=== PATIENT | male | born 1950 | race Two or more races ===

== ENCOUNTER 2016-12-17 09:16 | Inpatient (IN) | payer BC ==
[2016-12-17] VITALS (13 sets, daily range): BP systolic 100–143; BP diastolic 49–59
[~2016-12-17] VITALS: Ht 172.7 cm; Wt 70.3 kg
[2016-12-17] MEDS ORDERED: ASPIRIN 325 MG TABLET PO ONE (09:30)
[2016-12-17 09:32] LABS: BASOPHILS % (AUTO) 0.8 % (0.0-2.0); EOSINOPHILS # (AUTO) 0.2 /CMM (0.0-0.7); HEMATOCRIT 23 % (39-51); LYMPHOCYTES # (AUTO) 0.7 /CMM (0.8-4.8); LYMPHOCYTES % (AUTO) 20.8 % (20.0-44.0); MEAN CORPUSCULAR HEMOGLOBIN 20 PG (26.0-33.0); MEAN CORPUSCULAR HGB CONC 31 g/dl (31.0-36.0); MEAN CORPUSCULAR VOLUME 66 fL (80-96); MONOCYTES # (AUTO) 0.5 /CMM (0.1-1.30); MONOCYTES % (AUTO) 16.1 % (2.0-12.0); NEUTROPHILS # (AUTO) 1.8 /CMM (1.8-8.9); NEUTROPHILS % (AUTO) 57.3 % (43.0-81.0); PLATELET COUNT (AUTO) 104 /CMM (150-450); RDW COEFFICIENT OF VARIATION 21.2 (11.5-15.0); RED BLOOD CELL COUNT(AUTO) 3.45 MIL/uL (4.5-6.0); WHITE BLOOD COUNT (AUTO) 3.2 K/uL (4.3-11.0)
[2016-12-17 09:47] LABS: TROPONIN I < 0.017 ng/mL (0.00-0.056)
[2016-12-17 09:48] LABS: CALCIUM, SERUM 7.3 mg/dL (8.5-10.1); CARBON DIOXIDE 21 mmol/L (21-32); CHLORIDE 112 mmol/L (98-107); CREATININE 0.8 mg/dL (0.6-1.3); GLUCOSE 206 mg/dL (74-106); INR 1.35 (0.87-1.13); POTASSIUM 3.5 mmol/L (3.5-5.1); PROTHROMBIN TIME 14.7 SECS (9.5-12.7); SODIUM SERUM 142 mmol/L (136-145); UREA NITROGEN, BLOOD 22 mg/dL (7-18)
[2016-12-17] MEDS ORDERED: ASPIRIN EC 81 MG TABLET.DR PO ONE (09:52)
[2016-12-17 09:53] LABS: ALANINE AMINOTRANSFERASE 39 U/L (12-78); ALBUMIN 2.3 g/dL (3.4-5.0); ALKALINE PHOSPHATASE 192 U/L (46-116); ASPARTATE AMINOTRANSFERASE 40 U/L (15-37); BILIRUBIN,DIRECT 0.4 mg/dL (0.0-0.2); BILIRUBIN,TOTAL 0.9 mg/dL (0.2-1.0); TOTAL PROTEIN, SERUM 4.9 g/dL (6.4-8.2)
[2016-12-17 09:56] LABS: HEMOGLOBIN 6.9 g/dL (13.5-17.5)
[2016-12-17 10:11] LABS: BAND % (MANUAL) 3 % (0.0-5.0); EOSINOPHILS % (MANUAL) 9 % (0-4); LYMPHOCYTES % (MANUAL) 21 % (16-48); MONOCYTES % (MANUAL) 11 % (0-11.0); NEUTROPHILS % (MANUAL) 56 (42-76)
[2016-12-17] MEDS ORDERED: HYDR25TA4 PO (10:21)
[2016-12-17] MEDS ORDERED: LACT10SO PO (10:21)
[2016-12-17] MEDS ORDERED: GABA-534 PO (10:21)
[2016-12-17] MEDS ORDERED: NADO40TA6 PO (10:21)
[2016-12-17] MEDS ORDERED: GLIP5TAB13 PO (10:21)
[2016-12-17] MEDS ORDERED: ATOR10TA PO (10:21)
[2016-12-17] MEDS ORDERED: LISI-603 PO (10:21)
[2016-12-17] MEDS ORDERED: METF10002 PO (10:21)
[2016-12-17] MEDS ORDERED: DEXTROSE 50%-WATER 50 ML DISP.SYRIN IV PRN (11:00)
[2016-12-17] MEDS: PANTOPRAZOLE 40 MG TABLET.DR PO SCH ×2 (12:00→18:21)
[2016-12-17] MEDS ORDERED: BLOOD SUGAR DIAGNOSTIC 1 EACH STRIP IN SCH (12:00)
[2016-12-17] MEDS: BLOOD SUGAR DIAGNOSTIC 1 EACH STRIP IN SCH ×5 (12:52→21:34)
[2016-12-17] MEDS ORDERED: IV NS 0.9% 250 ML IV ONE (13:50)
[2016-12-17] MEDS ORDERED: BLOOD IV SET 1 EA INFUS.SET MC ONE (13:50)
[2016-12-17 16:40] LABS: APPEARANCE,URINE CLEAR (CLEAR); BILIRUBIN,URINE NEGATIVE (NEGATIVE); BLOOD, URINE NEGATIVE Ery/uL (NEGATIVE); COLOR,URINE YELLOW (YELLOW); KETONES,URINE NEGATIVE (NEGATIVE); LEUKOCYTE ESTERASE ,URINE 1+ (NEGATIVE); NITRITE, URINE NEGATIVE (NEGATIVE); PH,URINE 6.5 (5.0-8.0); PROTEIN,URINE NEGATIVE (NEGATIVE); UGLUCOSE 1+ mg/dL (NEGATIVE); UROBILINOGEN,URINE 0.2 EU/dL (0.2)
[2016-12-17 16:54] LABS: RBC,URINE NONE SEEN /HPF (0-2)
[2016-12-17 16:55] LABS: BACTERIA,URINE Many /HPF (None Seen); SQUAMOUS EPITHELIAL CELL,UR Few /HPF (None Seen)
[2016-12-17 19:08] LABS: THYROID STIMULATING HORMONE 1.788 uIU/mL (0.358-3.74)
[2016-12-18] VITALS (7 sets, daily range): BP systolic 112–132; BP diastolic 50–65
[2016-12-18] MEDS: BLOOD SUGAR DIAGNOSTIC 1 EACH STRIP IN SCH ×4 (06:23→21:18)
[2016-12-18 07:03] LABS: BASOPHILS % (AUTO) 0.3 % (0.0-2.0); EOSINOPHILS # (AUTO) 0.2 /CMM (0.0-0.7); EOSINOPHILS % (AUTO) 4.1 % (0.0-6.0); HEMATOCRIT 29 % (39-51); LYMPHOCYTES # (AUTO) 0.7 /CMM (0.8-4.8); LYMPHOCYTES % (AUTO) 19.1 % (20.0-44.0); MEAN CORPUSCULAR HEMOGLOBIN 22 PG (26.0-33.0); MEAN CORPUSCULAR HGB CONC 31 g/dl (31.0-36.0); MEAN CORPUSCULAR VOLUME 69 fL (80-96); MONOCYTES # (AUTO) 0.7 /CMM (0.1-1.30); MONOCYTES % (AUTO) 16.7 % (2.0-12.0); NEUTROPHILS # (AUTO) 2.3 /CMM (1.8-8.9); NEUTROPHILS % (AUTO) 59.8 % (43.0-81.0); PLATELET COUNT (AUTO) 106 /CMM (150-450); RDW COEFFICIENT OF VARIATION 24.6 (11.5-15.0); RED BLOOD CELL COUNT(AUTO) 4.19 MIL/uL (4.5-6.0); WHITE BLOOD COUNT (AUTO) 3.9 K/uL (4.3-11.0)
[2016-12-18 07:19] LABS: ALBUMIN 2.7 g/dL (3.4-5.0); BILIRUBIN,TOTAL 1.5 mg/dL (0.2-1.0); CALCIUM, SERUM 9.1 mg/dL (8.5-10.1); CREATININE 0.9 mg/dL (0.6-1.3); MAGNESIUM 1.4 mg/dL (1.8-2.4); PHOSPHORUS 3.3 mg/dL (2.5-4.9); POTASSIUM 3.5 mmol/L (3.5-5.1)
[2016-12-18 08:22] LABS: EOSINOPHILS % (MANUAL) 3 % (0-4); LYMPHOCYTES % (MANUAL) 16 % (16-48); MONOCYTES % (MANUAL) 14 % (0-11.0); NEUTROPHILS % (MANUAL) 67 (42-76)
[2016-12-18] MEDS ORDERED: ASPIRIN 81 MG TAB.CHEW PO SCH (09:00)
[2016-12-18] MEDS ORDERED: ENOXAPARIN SODIUM 40 MG/0.4 ML DISP.SYRIN SQ SCH (09:00)
[2016-12-18] MEDS ORDERED: IV SET PRIMARY PUMP SET 1 EA INFUS.SET MC ONE ×2 (10:34→23:20)
[2016-12-18] MEDS: Magnesium 1GM/D5W 100ML PREMIX 100 ML IV SCH ×2 (10:39→11:42)
[2016-12-18] MEDS ORDERED: ANESTHESIA TRAY IN PYXIS 1 EA TRAY MC ONE (13:51)
[2016-12-18 14:33] LABS: ALBUMIN 2.8 g/dL (3.4-5.0); BILIRUBIN,TOTAL 1.6 mg/dL (0.2-1.0); CALCIUM, SERUM 8.9 mg/dL (8.5-10.1); CREATININE 0.9 mg/dL (0.6-1.3); POTASSIUM 3.4 mmol/L (3.5-5.1); TOTAL PROTEIN, SERUM 6.1 g/dL (6.4-8.2)
[2016-12-18] MEDS: INSULIN REGULAR, HUMAN 100 UNIT/ML 3 ML VIAL SQ PRN (17:20)
[2016-12-18] MEDS ORDERED: SOD FERRIC GLUC 125 MG in IV NS 0.9% 100 ML IV SCH (22:30)
[2016-12-18] MEDS ORDERED: SOD FERRIC GLUC 62.5 MG/5 ML AMPUL IV ONE (22:46)
[2016-12-18] MEDS ORDERED: IV NS 0.9% 100 ML IV ONE (22:51)
[2016-12-18] MEDS ORDERED: SECONDARY IV SET 1 EA INFUS.SET MC ONE (22:55)
[2016-12-18] MEDS: LACTULOSE 10 G/15 ML UDC (PYXIS) PO PRN (23:17)
[2016-12-18] MEDS ORDERED: IV NS 0.9% 250 ML IV ONE (23:20)
[2016-12-19] VITALS: BP 128/51
[2016-12-19 04:00] VITALS: BP_SYST 123; BP_SYST 140; BP_DIAS 52; BP_DIAS 75
[2016-12-19] MEDS: PANTOPRAZOLE 40 MG TABLET.DR PO SCH (06:33)
[2016-12-19] MEDS: BLOOD SUGAR DIAGNOSTIC 1 EACH STRIP IN SCH ×4 (06:33→21:52)
[2016-12-19 06:40] LABS: BASOPHILS % (AUTO) 0.7 % (0.0-2.0); EOSINOPHILS # (AUTO) 0.2 /CMM (0.0-0.7); EOSINOPHILS % (AUTO) 3.9 % (0.0-6.0); HEMATOCRIT 28 % (39-51); LYMPHOCYTES # (AUTO) 0.7 /CMM (0.8-4.8); LYMPHOCYTES % (AUTO) 16.3 % (20.0-44.0); MEAN CORPUSCULAR HEMOGLOBIN 22 PG (26.0-33.0); MEAN CORPUSCULAR HGB CONC 32 g/dl (31.0-36.0); MEAN CORPUSCULAR VOLUME 69 fL (80-96); MONOCYTES # (AUTO) 0.5 /CMM (0.1-1.30); MONOCYTES % (AUTO) 11.7 % (2.0-12.0); NEUTROPHILS # (AUTO) 3.1 /CMM (1.8-8.9); NEUTROPHILS % (AUTO) 67.4 % (43.0-81.0); PLATELET COUNT (AUTO) 105 /CMM (150-450); RDW COEFFICIENT OF VARIATION 24.3 (11.5-15.0); RED BLOOD CELL COUNT(AUTO) 4.09 MIL/uL (4.5-6.0); WHITE BLOOD COUNT (AUTO) 4.6 K/uL (4.3-11.0)
[2016-12-19 06:58] LABS: ALBUMIN 2.7 g/dL (3.4-5.0); BILIRUBIN,TOTAL 1.5 mg/dL (0.2-1.0); CALCIUM, SERUM 8.4 mg/dL (8.5-10.1); CREATININE 0.8 mg/dL (0.6-1.3); MAGNESIUM 1.4 mg/dL (1.8-2.4); PHOSPHORUS 3.3 mg/dL (2.5-4.9); POTASSIUM 3.4 mmol/L (3.5-5.1); TOTAL PROTEIN, SERUM 5.9 g/dL (6.4-8.2)
[2016-12-19 07:57] LABS: EOSINOPHILS % (MANUAL) 4 % (0-4); LYMPHOCYTES % (MANUAL) 18 % (16-48); MONOCYTES % (MANUAL) 9 % (0-11.0); NEUTROPHILS % (MANUAL) 69 (42-76)
[2016-12-19 08:00] VITALS: BP 118/54
[2016-12-19] MEDS: LACTULOSE 10 G/15 ML UDC (PYXIS) PO PRN ×2 (08:56→17:22)
[2016-12-19] MEDS ORDERED: ENOXAPARIN SODIUM 40 MG/0.4 ML DISP.SYRIN SQ SCH (10:00)
[2016-12-19] MEDS ORDERED: POTASSIUM CHLORIDE 20 MEQ TAB.PRT.SR PO SCH (10:30)
[2016-12-19] MEDS: PROPRANOLOL HCL 10 MG TABLET PO SCH (11:00)
[2016-12-19] MEDS ORDERED: SECONDARY IV SET 1 EA INFUS.SET MC ONE ×2 (11:11→22:03)
[2016-12-19] MEDS: Magnesium 1GM/D5W 100ML PREMIX 100 ML IV SCH ×4 (11:23→15:33)
[2016-12-19] MEDS: INSULIN REGULAR, HUMAN 100 UNIT/ML 3 ML VIAL SQ PRN ×2 (12:33→17:14)
[2016-12-19] MEDS ORDERED: SOD FERRIC GLUC 125 MG in IV NS 0.9% 100 ML IV SCH (14:00)
[2016-12-19 16:00] VITALS: BP 124/56
[2016-12-19 20:00] VITALS: BP 112/53
[2016-12-19] MEDS: ENOXAPARIN SODIUM 40 MG/0.4 ML DISP.SYRIN SQ SCH (21:54)
[2016-12-19] MEDS ORDERED: PIPERACILLIN /TAZOBACTAM 3.375 G VIAL IV ONE (21:55)
[2016-12-19] MEDS ORDERED: IV D5W 50 ML IV ONE (21:59)
[2016-12-19] MEDS ORDERED: VANCOMYCIN 1 GM in IV D5W 250 ML IV ONE (22:00)
[2016-12-19] MEDS ORDERED: Potassium Chloride 20 MEQ in IV NS 0.9% 1,000 ML IV PRN (22:00)
[2016-12-19] MEDS ORDERED: VANCOMYCIN 1 GM VIAL ONE (22:08)
[2016-12-19] MEDS ORDERED: IV D5W 250 ML IV ONE ×2 (22:08→22:09)
[2016-12-19] MEDS: PIPERACILLIN /TAZOBACTAM 3.375 G in IV D5W 50 ML IV SCH (22:14)
[2016-12-20 04:00] VITALS: BP 112/53
[2016-12-20] MEDS ORDERED: IV D5W 50 ML IV ONE (05:23)
[2016-12-20] MEDS ORDERED: PIPERACILLIN /TAZOBACTAM 3.375 G VIAL IV ONE (05:23)
[2016-12-20] MEDS: PIPERACILLIN /TAZOBACTAM 3.375 G in IV D5W 50 ML IV SCH ×3 (05:38→18:24)
[2016-12-20 06:40] LABS: BASOPHILS % (AUTO) 0.5 % (0.0-2.0); EOSINOPHILS # (AUTO) 0.1 /CMM (0.0-0.7); EOSINOPHILS % (AUTO) 1.2 % (0.0-6.0); HEMATOCRIT 30 % (39-51); HEMOGLOBIN 9.5 g/dL (13.5-17.5); LYMPHOCYTES # (AUTO) 0.9 /CMM (0.8-4.8); LYMPHOCYTES % (AUTO) 11.7 % (20.0-44.0); MEAN CORPUSCULAR HEMOGLOBIN 22 PG (26.0-33.0); MEAN CORPUSCULAR HGB CONC 32 g/dl (31.0-36.0); MEAN CORPUSCULAR VOLUME 70 fL (80-96); MONOCYTES # (AUTO) 0.8 /CMM (0.1-1.30); MONOCYTES % (AUTO) 9.9 % (2.0-12.0); NEUTROPHILS % (AUTO) 76.7 % (43.0-81.0); PLATELET COUNT (AUTO) 98 /CMM (150-450); RDW COEFFICIENT OF VARIATION 24.7 (11.5-15.0); RED BLOOD CELL COUNT(AUTO) 4.29 MIL/uL (4.5-6.0); WHITE BLOOD COUNT (AUTO) 7.9 K/uL (4.3-11.0)
[2016-12-20] MEDS: BLOOD SUGAR DIAGNOSTIC 1 EACH STRIP IN SCH ×4 (06:46→22:09)
[2016-12-20] MEDS: PANTOPRAZOLE 40 MG TABLET.DR PO SCH (06:49)
[2016-12-20 06:56] LABS: ALANINE AMINOTRANSFERASE 46 U/L (12-78); ALBUMIN 2.6 g/dL (3.4-5.0); ALKALINE PHOSPHATASE 183 U/L (46-116); ASPARTATE AMINOTRANSFERASE 46 U/L (15-37); BILIRUBIN,TOTAL 1.8 mg/dL (0.2-1.0); CALCIUM, SERUM 8.2 mg/dL (8.5-10.1); CARBON DIOXIDE 22 mmol/L (21-32); CHLORIDE 109 mmol/L (98-107); CREATININE 0.8 mg/dL (0.6-1.3); GLUCOSE 128 mg/dL (74-106); MAGNESIUM 1.6 mg/dL (1.8-2.4); PHOSPHORUS 2.5 mg/dL (2.5-4.9); POTASSIUM 3.7 mmol/L (3.5-5.1); SODIUM SERUM 141 mmol/L (136-145); TOTAL PROTEIN, SERUM 5.9 g/dL (6.4-8.2); UREA NITROGEN, BLOOD 10 mg/dL (7-18)
[2016-12-20 07:20] LABS: EOSINOPHILS % (MANUAL) 1 % (0-4); LYMPHOCYTES % (MANUAL) 16 % (16-48); MONOCYTES % (MANUAL) 7 % (0-11.0); NEUTROPHILS % (MANUAL) 76 (42-76)
[2016-12-20] MEDS: INSULIN REGULAR, HUMAN 100 UNIT/ML 3 ML VIAL SQ PRN ×3 (07:46→22:11)
[2016-12-20 08:00] VITALS: BP 108/48
[2016-12-20] MEDS ORDERED: FEE PK DOSING 1 MIN EA MC ONE ×2 (08:15→08:57)
[2016-12-20 08:23] LABS: BILIRUBIN,DIRECT 0.7 mg/dL (0.0-0.2)
[2016-12-20] MEDS ORDERED: ENOXAPARIN SODIUM 40 MG/0.4 ML DISP.SYRIN SQ SCH (09:00)
[2016-12-20] MEDS: PROPRANOLOL HCL 10 MG TABLET PO SCH (09:00)
[2016-12-20] MEDS: ENOXAPARIN SODIUM 40 MG/0.4 ML DISP.SYRIN SQ SCH ×2 (09:20→22:28)
[2016-12-20] MEDS ORDERED: IV SET PRIMARY PUMP SET 1 EA INFUS.SET MC ONE (09:39)
[2016-12-20] MEDS: Magnesium 1GM/D5W 100ML PREMIX 100 ML IV SCH ×2 (09:45→11:08)
[2016-12-20] MEDS ORDERED: SECONDARY IV SET 1 EA INFUS.SET MC ONE ×2 (13:09→14:09)
[2016-12-20] MEDS: VANCOMYCIN 1 GM in IV D5W 250 ML IV SCH ×2 (14:15→22:06)
[2016-12-20 16:00] VITALS: BP 123/57
[2016-12-20] MEDS: LACTULOSE 10 G/15 ML UDC (PYXIS) PO SCH (18:23)
[2016-12-20 20:00] VITALS: BP 104/51
[2016-12-21] MEDS: PIPERACILLIN /TAZOBACTAM 3.375 G in IV D5W 50 ML IV SCH ×4 (00:12→18:01)
[2016-12-21 04:00] VITALS: BP 105/46
[2016-12-21] MEDS ORDERED: IV NS 0.9% 250 ML IV ONE (05:26)
[2016-12-21 07:22] LABS: CALCIUM, SERUM 8.5 mg/dL (8.5-10.1); CREATININE 0.9 mg/dL (0.6-1.3); POTASSIUM 3.7 mmol/L (3.5-5.1)
[2016-12-21] MEDS: PANTOPRAZOLE 40 MG TABLET.DR PO SCH (07:30)
[2016-12-21] MEDS: BLOOD SUGAR DIAGNOSTIC 1 EACH STRIP IN SCH ×4 (07:30→22:00)
[2016-12-21 08:00] VITALS: BP 115/60
[2016-12-21] MEDS: PROPRANOLOL HCL 10 MG TABLET PO SCH (09:00)
[2016-12-21] MEDS: LACTULOSE 10 G/15 ML UDC (PYXIS) PO SCH ×2 (09:00→18:01)
[2016-12-21] MEDS ORDERED: LACTULOSE 10 G/15 ML UDC (PYXIS) PO SCH (09:00)
[2016-12-21 12:00] VITALS: BP 105/46
[2016-12-21] MEDS: VANCOMYCIN 1 GM in IV D5W 250 ML IV SCH (13:04)
[2016-12-21] MEDS: ENOXAPARIN SODIUM 40 MG/0.4 ML DISP.SYRIN SQ SCH ×2 (13:26→23:55)
[2016-12-21 16:00] VITALS: BP 117/49
[2016-12-21] MEDS: LACTOBACILLUS RHAMNOSUS GG 1 EACH CAP.SPRINK PO SCH (18:01)
[2016-12-21] MEDS: INSULIN REGULAR, HUMAN 100 UNIT/ML 3 ML VIAL SQ PRN ×2 (18:04→22:07)
[2016-12-21 20:00] VITALS: BP 122/63
[2016-12-21] MEDS: LEVOFLOXACIN (500MG) 500 MG TABLET PO SCH (20:06)
[2016-12-22 04:00] VITALS: BP 110/47
[2016-12-22] MEDS: BLOOD SUGAR DIAGNOSTIC 1 EACH STRIP IN SCH ×4 (05:32→22:40)
[2016-12-22 06:30] VITALS: BP 123/56
[2016-12-22 07:31] LABS: CREATININE 0.9 mg/dL (0.6-1.3); POTASSIUM 3.8 mmol/L (3.5-5.1)
[2016-12-22 07:34] LABS: INR 1.21 (0.87-1.13); PROTHROMBIN TIME 13.1 SECS (9.5-12.7)
[2016-12-22 08:00] VITALS: BP 123/56
[2016-12-22] MEDS: PANTOPRAZOLE 40 MG TABLET.DR PO SCH (08:30)
[2016-12-22] MEDS: LACTOBACILLUS RHAMNOSUS GG 1 EACH CAP.SPRINK PO SCH ×2 (08:30→16:50)
[2016-12-22] MEDS: LACTULOSE 10 G/15 ML UDC (PYXIS) PO SCH ×2 (08:30→16:50)
[2016-12-22] MEDS: PROPRANOLOL HCL 10 MG TABLET PO SCH (08:31)
[2016-12-22] MEDS: ENOXAPARIN SODIUM 40 MG/0.4 ML DISP.SYRIN SQ SCH ×2 (08:40→22:46)
[2016-12-22] MEDS: INSULIN REGULAR, HUMAN 100 UNIT/ML 3 ML VIAL SQ PRN ×2 (12:12→17:00)
[2016-12-22 16:00] VITALS: BP 113/58
[2016-12-22 20:00] VITALS: BP 112/56
[2016-12-22] MEDS: LEVOFLOXACIN (500MG) 500 MG TABLET PO SCH (20:25)
[2016-12-23] MEDS: BLOOD SUGAR DIAGNOSTIC 1 EACH STRIP IN SCH (06:44)
[2016-12-23 07:18] LABS: CALCIUM, SERUM 8.9 mg/dL (8.5-10.1); CREATININE 0.8 mg/dL (0.6-1.3); POTASSIUM 3.8 mmol/L (3.5-5.1)
[2016-12-23] MEDS: PANTOPRAZOLE 40 MG TABLET.DR PO SCH (07:27)
[2016-12-23 08:00] VITALS: BP 116/52
[2016-12-23] MEDS: LACTULOSE 10 G/15 ML UDC (PYXIS) PO SCH (08:06)
[2016-12-23] MEDS: LACTOBACILLUS RHAMNOSUS GG 1 EACH CAP.SPRINK PO SCH (08:06)
[2016-12-23] MEDS: PROPRANOLOL HCL 10 MG TABLET PO SCH (08:11)
[2016-12-23] MEDS: ENOXAPARIN SODIUM 40 MG/0.4 ML DISP.SYRIN SQ SCH (09:00)
[2016-12-23] MEDS ORDERED: RIVA10TA PO (12:23)
== END 2016-12-23 13:00 | disposition home or self-care (01) | DRG 441 ==
LOC: ER 09:18 → TELE1 10:29 → MEDSG1 12-18 12:07 → MEDSG2 12-22 05:51
PROVIDERS: ADMIT Nurse Practitioner Acute Care; ATTEND Nurse Practitioner Acute Care
PROC: 30233N1 Transfusion of Nonautologous Red Blood Cells into Peripheral Vein, Percutaneous Approach (ICD-10-PCS; principal; 2016-12-17)
PROC: 06L34CZ Occlusion of Esophageal Vein with Extraluminal Device, Percutaneous Endoscopic Approach (ICD-10-PCS; 2016-12-18)
DX: I81 Portal vein thrombosis (principal); I85.11 Secondary esophageal varices with bleeding; K72.00 Acute and subacute hepatic failure without coma; K76.6 Portal hypertension; D62 Acute posthemorrhagic anemia; D61.818 Other pancytopenia; N39.0 Urinary tract infection, site not specified; E72.20 Disorder of urea cycle metabolism, unspecified; K74.60 Unspecified cirrhosis of liver; E78.5 Hyperlipidemia, unspecified; E11.9 Type 2 diabetes mellitus without complications; D72.819 Decreased white blood cell count, unspecified; B96.20 Unspecified Escherichia coli [E. coli] as the cause of diseases classified elsewhere; D69.59 Other secondary thrombocytopenia; Z87.11 Personal history of peptic ulcer disease; Z87.891 Personal history of nicotine dependence; D69.6 Thrombocytopenia, unspecified; R74.8 Abnormal levels of other serum enzymes; R55 Syncope and collapse; E83.42 Hypomagnesemia; I86.8 Varicose veins of other specified sites; E61.1 Iron deficiency; I10 Essential (primary) hypertension; K80.20 Calculus of gallbladder without cholecystitis without obstruction
CPT/HCPCS: 36415; 70450-TC; 71010-TC; 76700-TC; 80048-TC; 80053-TC; 80061-TC; 80076-TC; 80202-TC; 80305; 81000-TC; 82140-TC; 82248-TC; 82306; 82668; 82728-TC; 82746; 82962-TC; 83010; 83540-TC; 83605-TC; 83735-TC; 83880; 84100-TC; 84207; 84439-TC; 84443-TC; 84484-TC; 85025-TC; 85610-TC; 85652-TC; 85730-TC; 86850-TC; 86921-TC; 87040-TC; 87081-TC; 87086-TC; 87186-TC; 92521; 92611-TC; 93307-TC; 93880-TC; 93976-TC; 97001-TC; 97003-TC; A4606; J1650; J1815; J2543; J2704; J2916; J3370; J3475; J3480; J3490; J7030; J7050; J7060; P9016-BL; Z7610